=== PATIENT | female | born 1970 | race Caucasian/White ===

== ENCOUNTER 2017-02-24 11:47 | Emergency (ER) | payer OTHER, MEDICAID ==
[~2017-02-24] VITALS: Wt 66.5 kg
[~2017-02-24 11:47] MED LIST: ACET-1145 PO; APIX5TAB PO; MECL-77 PO; RIVA15TA PO
[2017-02-24] MEDS ORDERED: SOD CHLORIDE 0.9% 1,000 ML IV STA (12:11)
[2017-02-24] MEDS ORDERED: KETOROLAC 15 MG INJ IV STA (12:11)
[2017-02-24 12:34] LABS: ADD SCAN DIFF NO
[2017-02-24 12:44] LABS: BASOPHILS % 0.7 % (0.0-2.0); EOSINOPHILS # 0.1 10^3/ul (0.0-0.5); EOSINOPHILS % 1.6 % (0.0-7.0); HEMATOCRIT 41.6 % (37.0-47.0); HEMOGLOBIN 13.7 g/dl (12.0-16.0); LYMPHOCYTES # 1.6 10^3/ul (0.8-2.9); LYMPHOCYTES % 35.8 % (15.0-51.0); MEAN CORPUSCULAR HEMOGLOBIN 31.2 pg (29.0-33.0); MEAN CORPUSCULAR HGB CONC 32.9 g/dl (32.0-37.0); MEAN CORPUSCULAR VOLUME 94.8 fl (82.0-101.0); MEAN PLATELET VOLUME 10.9 fl (7.4-10.4); MONOCYTE # 0.5 10^3/ul (0.3-0.9); MONOCYTES % 11.4 % (0.0-11.0); NEUTROPHIL # 2.3 10^3/ul (1.6-7.5); NEUTROPHILS % 50.3 % (39.0-77.0); PLATELET COUNT 285 10^3/UL (140-415); RED BLOOD COUNT 4.39 10^6/ul (4.20-5.40); RED CELL DISTRIBUTION WIDTH 12.7 % (11.5-14.5); WHITE BLOOD COUNT 4.5 10^3/ul (4.8-10.8)
[2017-02-24 12:59] LABS: INR 0.9; PROTIME 12.1 Sec (12.2-14.2); PT RATIO 0.9
[2017-02-24 13:02] LABS: ALANINE AMINOTRANSFERASE 68 IU/L (13-69); ALBUMIN 4.4 g/dl (3.3-4.9); ALBUMIN/GLOBULIN RATIO 1.22; ALKALINE PHOSPHATASE 71 IU/L (42-121); ANION GAP 21 (8-16); ASPARTATE AMINO TRANSFERASE 56 IU/L (15-46); BILIRUBIN,INDIRECT 0.4 mg/dl (0-1.1); BILIRUBIN,TOTAL 0.4 mg/dl (0.2-1.3); BLOOD UREA NITROGEN 11 mg/dl (7-20); CALCIUM 9.5 mg/dl (8.4-10.2); CARBON DIOXIDE 26 mmol/L (21-31); CHLORIDE 104 mmol/L (97-110); CREATININE 0.69 mg/dl (0.44-1.00); GLUCOSE 112 mg/dl (70-220); POTASSIUM 4.6 mmol/L (3.5-5.1); SODIUM 146 mmol/L (135-144)
[2017-02-24 13:13] LABS: TROPONIN-I < 0.012 ng/ml (0.00-0.12)
--- NOTE | 2017-02-24 13:18 | ERD ---
ER Documentation Chief Complaint Date/Time DATE: 02/24/17 TIME: 13:10 Chief Complaint r. sided cp rad into back on inspiration. hx of pe HPI 46-year-old woman presents with sharp inspiratory chest pain that radiates to the back since yesterday. She does have a history of subsegmental bilateral pulmonary embolus and uses apixaban daily. She has had a nonproductive cough 1 day. She denies fevers or chills, no calf or leg swelling, no vomiting or diarrhea, no headache or blurry vision. Patient denies oral contraceptive use or tobacco smoke. ROS All systems reviewed and are negative except as per history of present illness. Medications Home Meds Active Scripts Meclizine Hcl* (Meclizine Hcl*) 25 Mg Tablet, 25 MG PO Q8H Y for dizziness, #20 TAB Prov:TYRONE VIZCAINO NP 09/02/15 Acetaminophen-Codeine (Tylenol With Codeine #3 Tablet) 300-30 Mg Tablet, 1 TAB PO Q4H Y for PAIN, #10 TAB Prov:TYRONE VIZCAINO NP 09/02/15 Apixaban* (Eliquis*) 5 Mg Tablet, 10 MG PO BID, #12 TAB take for 6days. last dose 08/01/15 at 9am Prov:JACKY PERKNIS NP 07/26/15 Apixaban* (Eliquis*) 5 Mg Tablet, 5 MG PO BID, #30 TAB start 5mg dose on 08/01/15 at 9pm. then continue taking two times per day. requires taleat 6 months of therapy. primary care physician to follow up Prov:JACKY PERKINS NP 07/26/15 Reported Medications Rivaroxaban* (Xarelto*) Unknown Strength Tablet, PO BID for 14 Days, TAB 09/02/15 Allergies Allergies: Coded Allergies: No Known Allergy (Verified , 09/03/11) PMhx/Soc Pulmonary embolus History of Surgery: No Anesthesia Reaction: No Hx Neurological Disorder: No Hx Respiratory Disorders: No Hx Cardiac Disorders: No Hx Psychiatric Problems: No Hx Miscellaneous Medical Probl: No Hx Alcohol Use: No Hx Substance Use: No Hx Tobacco Use: No FmHx Family History: No diabetes Physical Exam Vitals Vital Signs Date Time Temp Pulse Resp B/P Pulse Ox O2 Delivery O2 Flow Rate FiO2 02/24/17 11:49 98.2 64 20 148/70 95 Physical Exam GENERAL: Well-developed, well-nourished, well-hydrated, in no apparent distress , looks nontoxic in appearance HEENT: Moist mucous membranes, pink conjunctiva, no cervical spine tenderness or step-off deformities, no goiter, no jaundice or icterus, extraocular movements intact without pain. No submandibular induration, and no pharyngeal erythema NEURO: Alert and oriented 3, cranial nerves II through XII intact bilaterally, pupils equal round reactive to light, no focal deficits or facial asymmetry, sensation intact distally Strength 5/5 in upper and lower extremities bilaterally CARDIAC: Regular rate and rhythm, no murmurs rubs or gallops LUNGS: Clear bilaterally no wheezing crackles or stridor ABDOMEN: Soft nontender, no guarding, no rigidity, no rebound, no psoas sign no obturator sign. Normoactive bowel sounds SKIN: Warm and dry to touch, no abrasions, contusions, or hematomas, no lacerations, no ecchymosis, no target lesions, and without ulcers EXTREMITIES: No clubbing cyanosis or edema, calves are bilaterally symmetrical, no Homans sign, no popliteal cord sign. Distal pulses equal and bilateral PSYCH: Normal affect without agitation or irritability Result Diagram: 02/24/17 1225 02/24/17 1225 Results 24 hrs Laboratory Tests Test 02/24/17 12:25 White Blood Count 4.510^3/ul Red Blood Count 4.3910^6/ul Hemoglobin 13.7g/dl Hematocrit 41.6% Mean Corpuscular Volume 94.8fl Mean Corpuscular Hemoglobin 31.2pg Mean Corpuscular Hemoglobin Concent 32.9g/dl Red Cell Distribution Width 12.7% Platelet Count 88393^3/UL Mean Platelet Volume 10.9fl Neutrophils % 50.3% Lymphocytes % 35.8% Monocytes % 11.4% Eosinophils % 1.6% Basophils % 0.7% Neutrophils # 2.310^3/ul Lymphocytes # 1.610^3/ul Monocytes # 0.510^3/ul Eosinophils # 0.110^3/ul Basophils # 0.010^3/ul Nucleated Red Blood Cells # 0.010^3/ul Prothrombin Time 12.1Sec Prothrombin Time Ratio 0.9 INR International Normalized Ratio 0.90 Sodium Level 146mmol/L Potassium Level 4.6mmol/L Chloride Level 104mmol/L Carbon Dioxide Level 26mmol/L Anion Gap 21 Blood Urea Nitrogen 11mg/dl Creatinine 0.69mg/dl Glucose Level 112mg/dl Calcium Level 9.5mg/dl Total Bilirubin 0.4mg/dl Direct Bilirubin 0.00mg/dl Indirect Bilirubin 0.4mg/dl Aspartate Amino Transf (AST/SGOT) 56IU/L Alanine Aminotransferase (ALT/SGPT) 68IU/L Alkaline Phosphatase 71IU/L Troponin I Pending Total Protein 8.0g/dl Albumin 4.4g/dl Globulin 3.60g/dl Albumin/Globulin Ratio 1.22 Lipase 37U/L Current Medications Medications (Trade) Dose Ordered Sig/Alda Route PRN Reason Start Time Stop Time Status Last Admin Dose Admin Sodium Chloride (NS) 1,000 ml @ 1,000 mls/hr Q1H STAT IV 02/24/17 12:11 02/24/17 13:10 Ketorolac Tromethamine (Toradol) 15 mg ONCE STAT IV 02/24/17 12:11 02/24/17 12:13 DC Procedures/MDM IV line was established patient was placed on gambling monitor rhythm strip revealed a sinus bradycardia at about 50 bpm with upright P and T waves. Patient was afebrile. EKG performed, read by me revealed a sinus bradycardia 53 bpm, normal axis, narrow QRS complex, no concerning ST elevations or depressions noted. I administered 1 L normal saline intravenously and Toradol 15 mg IV 1 with improvement in her symptoms. CBC and electrolytes are normal, liver function tests were normal, troponin was negative. CT angiogram of the chest was performed. Differential diagnoses considered, included but not limited to acute coronary syndrome, pulmonary embolism, aortic dissection, abdominal aortic aneurysm, sepsis, stroke, meningitis, encephalitis, pneumonia, appendicitis, cholecystitis , bowel obstruction, pyelonephritis, nephrolithiasis, cystitis, as well as metabolic, hematologic, and electrolyte abnormalities. As well as abscess, cellulitis, fractures, and dislocations. Patient feels much better at this time, and vital signs are normal, symptoms have improved. I did give strict instructions to return to the ED if symptoms continue or worsen, patient will otherwise follow-up with primary care physician. Patient understood instructions and agreed to plan. Disclaimer: Inadvertent spelling and grammatical errors are likely due to EHR/ dictation software use and do not reflect on the overall quality of patient care. Also, please note that the electronic time recorded on this note does not necessarily reflect the actual time of the patient encounter. Departure Diagnosis: Primary Impression: Chest pain Chest pain type: unspecified Qualified Code: R07.9 - Chest pain, unspecified type Additional Impression: Pulmonary emboli Pulmonary embolism type: other Chronicity: chronic Acute cor pulmonale presence: without acute cor pulmonale Qualified Code: I27.82 - Other chronic pulmonary embolism without acute cor pulmonale MILAGRO HERNANDEZ MD Feb 24, 2017 13:18
[2017-02-24] MEDS ORDERED: IOHEXOL 100 ML ONE (13:25)
[2017-02-24] MEDS ORDERED: SOD CHLORIDE 0.9% 100 ML ONE (13:25)
[2017-02-24 13:50] VITALS: BP 109/79; PULSE 64; RESP 16
--- NOTE | 2017-02-24 14:02 | RADRPT ---
PROCEDURE: CTA Chest with contrast and with 3-D reconstructions CLINICAL INDICATION: r/o pe, chest pain TECHNIQUE: The study was performed utilizing multidetector CT scanner. Direct spiral axial section s were obtained from the thoracic inlet to the upper abdomen after the intravenous administration of 90 cc of Omnipaque 350. Sagittal, coronal and 3-D reformations were obtained. The images were revie wed on a PACS workstation. DLP 375.37 mGycm CTDIvol 19.72, 10.20 mGy One or more of the following dose reduction techniques were used: - Automated exposure control. - Adjustment of the mA and/or kV according to patient size. - Use of iterative reconstruction technique. COMPARISON: No prior studies are available for comparison. FINDINGS: There are no pulmonary emboli. The lungs are clear. There is no pleural fluid. There is no pneumothorax. Heart size is within normal limits. There is no pericardial fluid. The aorta is within normal limi ts. A bovine arch is noted. There are no enlarged axillary or mediastinal lymph nodes. The liver demonstrates decreased density consistent with fatty infiltration. Bilateral breast prostheses are noted. Osseous are within normal limits. IMPRESSION: No CT evidence for pulmonary embolus. Clear lungs. Fatty infiltration of the liver. RPTAT: EE Physician Monica Date Time Electronically viewed and signed by Physician Monica on 02/24/2017 14:02 /
[2017-02-24] MEDS ORDERED: ALPR0.5T PO (14:19)
[2017-02-24] MEDS ORDERED: IBUP-1542 PO (14:19)
[2017-02-24 14:21] LABS: ADD UMIC NO; UR ASCORBIC ACID NEGATIVE (NEGATIVE); UR BILIRUBIN (Dip) NEGATIVE (NEGATIVE); UR BLOOD (Dip) NEGATIVE (NEGATIVE); UR CLARITY CLEAR (CLEAR); UR COLOR YELLOW (YELLOW); UR GLUCOSE (Dip) NEGATIVE (NEGATIVE); UR KETONES (Dip) NEGATIVE (NEGATIVE); UR LEUKOCYTE ESTERASE (Dip) NEGATIVE Leu/ul (NEGATIVE); UR NITRITE (Dip) NEGATIVE (NEGATIVE); UR SPECIFIC GRAVITY (Dip) 1.021 (1.003-1.030); UR TOTAL PROTEIN (Dip) NEGATIVE (NEGATIVE); UR UROBILINOGEN (Dip) NEGATIVE (NEGATIVE)
== END 2017-02-24 15:11 | disposition home or self-care (01) ==
LOC: E/R 11:47
DX: R07.1 Chest pain on breathing (principal); I27.82 Chronic pulmonary embolism
CPT/HCPCS: 36415; 71275; 80053; 81003; 83690; 84484; 85025; 85610; 93005; 96374; 99285; J1885; J7030; Q9967

== ENCOUNTER 2017-11-03 08:19 | Emergency (ER) | END 2017-11-03 10:41 | disposition home or self-care (01) ==

== ENCOUNTER 2018-03-22 08:21 | Day surgery (SDC) | END 2018-03-22 14:37 | disposition home or self-care (01) ==